=== PATIENT | female | born 1975 | race Caucasian/White ===

== ENCOUNTER 2020-12-26 14:52 | Outpatient (CLI) | payer OTHER, SELFPAY ==
--- NOTE | ~2020-12-26 | MM_ITS ---
EXAMINATION: MM screening scot BI w kimberly HISTORY: Screening TECHNIQUE: Craniocaudal and mediolateral oblique 3-D tomosynthesis images were obtained and synthetic 2-D images were generated. CAD analysis was submitted and interpreted. COMPARISON: Comparison to multiple prior studies sequentially, with oldest reviewed study dated 07/29 the. BREAST PARENCHYMAL COMPOSITION: The breasts are heterogenously dense, which may obscure small masses. FINDINGS: There is a developing asymmetry in the upper aspect of the left breast on MLO view. The rig ht breast is stable without evidence for malignancy. IMPRESSION: 1. Focal asymmetry superior aspect of the left breast on MLO view. 2. Additional mammographic views and possible breast ultrasound are recommended. BI-RADS Category 0: Incomplete: Needs additional imaging evaluation. Reviewed, dictated and finalized at location A. R SPECIALIST IMPRESSION: 1. Focal asymmetry superior aspect of the left breast on MLO view. 2. Additional mammographic views and possible breast ultrasound are recommended . BI-RADS Category 0: Incomplete: Needs additional imaging evaluation.
== END 2020-12-26 14:53 | disposition home or self-care (01) ==
DX: Z12.31 Encounter for screening mammogram for malignant neoplasm of breast (principal); R92.8 Other abnormal and inconclusive findings on diagnostic imaging of breast
CPT/HCPCS: 77063; 77067

== ENCOUNTER 2021-01-11 14:15 | Outpatient (CLI) | payer OTHER, SELFPAY ==
--- NOTE | ~2021-01-11 | MMUS_ITS ---
EXAMINATION: MM diagnostic mammo unilat LT, US breast LT complete HISTORY: Focal mammographic asymmetry reported in superior aspect of left breast on screening MLO vie w of 12/26/2020 TECHNIQUE: Additional 3-D tomosynthesis images of the left breast were performed and synthetic 2-D im ages were generated. CAD analysis was submitted and interpreted. High resolution complete left breast ultrasound was performed. COMPARISON: 12/26/2020 bilateral digital screening mammogram 12/09/2019 bilateral diagnostic digital mammogram and bilateral Limited ultrasound 10/25/2019 bilateral digital screening mammogram 09/21/2018, 07/29/2017 bilateral digital screening mammogram examinations BREAST PARENCHYMAL COMPOSITION: The breasts are heterogeneously dense, which may obscure small masses . FINDINGS: MAMMOGRAPHIC FINDINGS: No suspicious mass or architectural distortion or significant change or significant new or developing density since 02/26/2017 is detected. ULTRASOUND: At 2:00 there is a parallel circumscribed sonolucency measuring 4.9 x 1.8 x 5.2 mm, with through alex smission, compatible with small cyst. No suspicious mass or shadowing of the left breast. IMPRESSION: 1. No mammographic evidence of malignancy 2. Routine annual mammographic screening is recommended. BI-RADS Category 2: Benign finding(s). Reviewed, dictated and finalized at location A. AL STUNNER IMPRESSION: 1. No mammographic evidence of malignancy 2. Routine annual mammographic screening is recommended. BI-RADS Category 2: Benign finding(s).
== END 2021-01-11 14:16 | disposition home or self-care (01) ==
LOC: ANHIMG 14:17
DX: Z85.3 Personal history of malignant neoplasm of breast (principal); R92.8 Other abnormal and inconclusive findings on diagnostic imaging of breast
CPT/HCPCS: 76641; 77065

== ENCOUNTER 2021-03-16 11:09 | Emergency (ER) | payer OTHER, SELFPAY ==
--- NOTE | 2021-03-16 11:14 | ED.GENADULT ---
HPI - General Adult General Chief complaint: Upper Respiratory Infection Stated complaint: ears clogged/cough/sinus issues Time Seen by Provider: 03/16/21 11:14 Source: patient Mode of arrival: ambulatory Limitations: no limitations History of Present Illness HPI narrative: 45-year-old female patient presents to the [facility] with complaints of cold symptoms for the past 3 weeks. Patient states she has had a lot of sinus pressure, feeling like her ears are clogged, runny nose, stuffy nose and a chronic cough that is worse at night. Patient states she has been trying to do Zyrtec daily, Benadryl at night as well as sinus washes. Patient states she does have a history of chronic allergies and has had sinus surgery before in the past. Patient is an active smoker. Patient denies any chest pain or shortness of breath at this time. Patient denies coughing up any sputum. Denies fevers, body aches or chills. Related Data Home Medications Medication Instructions Recorded Confirmed atorvastatin 10 mg PO DAILY 11/30/19 11/30/19 cetirizine 10 mg PO DAILY 11/30/19 11/30/19 lisinopril 20 mg PO DAILY 11/30/19 11/30/19 Allergies Allergy/AdvReac Type Severity Reaction Status Date / Time morphine Allergy Unknown RASH Unverified 11/30/19 16:40 Review of Systems Review of Systems: Narrative: CONSTITUTIONAL: Denies fever, chills, or sweats. EYES: Denies visual changes, redness, or discharge. ENT: Positive rhinorrhea, congestion, denies sore throat, positive bilateral otalgia. CARDIOVASCULAR: Denies chest pain, palpitations, or edema. RESPIRATORY: Positive dry, nonproductive cough, denies dyspnea. GASTROINTESTINAL: Denies abdominal pain, nausea, vomiting, or diarrhea. GENITOURINARY: Denies dysuria or hematuria. SKIN: Denies rash or itching. MUSCULOSKELETAL: Denies back pain, joint pain, or myalgia. NEUROLOGIC: Denies headache, numbness, or weakness. PSYCHIATRIC: Denies anxiety or depression. 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 There is no relevant family history pertinent to the presenting complaint. Exam Narrative: Exam Narrative: GENERAL: Well-appearing, well-nourished, and in no acute distress. HEAD: Normocephalic, atraumatic. Slight tenderness noted to maxillary sinuses on palpation EYES: PERRLA and EOMI. ENT: Nares with erythema and edema noted bilaterally, no rhinorrhea or epistaxis. Mucous membranes moist. Posterior pharynx with no erythema, tonsillar joint, exudates or lesions present. There is a fluid noted behind bilateral ears. No foreign bodies noted to the canal. NECK: Supple. No lymphadenopathy CHEST: Clear to auscultation. No respiratory distress. Patient able talk in clear complete sentences. No tripoding noted. HEART: Regular rate and rhythm. No murmur heard. Normal peripheral pulses. ABDOMEN: Soft, nontender, nondistended, normal active bowel sounds. EXTREMITIES: Normal range of motion. No edema. SKIN: Warm, dry, no rash. NEURO: No focal deficits. Alert and oriented x3. Course Vital Signs Vital signs: Vital Signs Temperature 36.8 C 03/16/21 11:20 Pulse Rate 111 H 03/16/21 11:20 Respiratory Rate 12 03/16/21 11:20 Blood Pressure 118/74 03/16/21 11:20 Pulse Oximetry 99 03/16/21 11:20 Temperature 36.8 C 03/16/21 11:20 Pulse Rate 111 H 03/16/21 11:20 Respiratory Rate 12 03/16/21 11:20 Blood Pressure 118/74 03/16/21 11:20 Pulse Oximetry 99 03/16/21 11:20 V
[2021-03-16 11:20] VITALS: BP 118/74; PULSE 111; RESP 12; TEMP 36.8; O2SAT 99
== END 2021-03-16 11:39 | disposition home or self-care (01) ==
PROVIDERS: Emergency Provider Nurse Practitioner Family
DX: J32.2 Chronic ethmoidal sinusitis (principal); N80.9 Endometriosis, unspecified; K21.9 Gastro-esophageal reflux disease without esophagitis; E78.00 Pure hypercholesterolemia, unspecified; I10 Essential (primary) hypertension
CPT/HCPCS: 99213; G0463

== ENCOUNTER 2021-04-11 07:06 | Emergency (ER) | payer OTHER, SELFPAY ==
--- NOTE | ~2021-04-11 | XR_ITS ---
EXAMINATION: XR chest 2V DATE: 04/11/2021 07:49 INDICATION: Cough TECHNIQUE: PA and lateral views of the chest were obtained. COMPARISON: Chest radiograph dated 11/30/2019 FINDINGS: Bronchial wall thickening and mild opacities in the perihilar left upper lobe consistent with pneumon ia. Small calcified nodules in the left lower lung zone consistent with old granulomatous disease. No pleural effusion or pneumothorax. Cardiomediastinal silhouette is normal. Visualized bones and soft tissues are unremarkable. IMPRESSION: 1. Left upper lobe pneumonia. Reviewed, dictated and finalized at location A.
[2021-04-11 07:12] VITALS: BP 110/81; PULSE 108; RESP 20; TEMP 37; O2SAT 97
[2021-04-11 07:16] VITALS: BP 110/81; PULSE 107; RESP 16; TEMP 37; O2SAT 96
--- NOTE | 2021-04-11 07:26 | ED.BACK ---
HPI - Back Pain/Injury General Chief Complaint: Back Pain/Injury Stated Complaint: back pain Time Seen by Provider: 04/11/21 07:10 History of Present Illness HPI Narrative: 45 yo female presents to the ED for back pain. She has had right upper back pain for the past few days. Last night she was coughing and felt a pop just medial to the right scapula and the pain has been severe since that time. It is worse with moving, deep breathing and coughing. She reports that she has had a cough for more than 1 month. was initially seen at urgent care and treated for sinusitis. SHe has since followed up with her PCP. No SOB, chest pain, leg swelling. Related Data Home Medications Medication Instructions Recorded Confirmed atorvastatin 10 mg PO DAILY 11/30/19 11/30/19 cetirizine 10 mg PO DAILY 11/30/19 11/30/19 lisinopril 20 mg PO DAILY 11/30/19 11/30/19 Allergies Allergy/AdvReac Type Severity Reaction Status Date / Time morphine Allergy Unknown RASH Verified 04/11/21 07:18 Review of Systems Review of Systems: All systems reviewed & are unremarkable except as noted in HPI and below Constitutional: Constitutional: Denies chills, Denies fever(s) and Denies weakness Eyes: Eyes: Reports no additional eye complaints ENT: Reports nasal congestion and Reports sore throat Cardiovascular: Cardiovascular: Denies chest pain Respiratory: Respiratory: Denies chest congestion, Reports cough and Denies dyspnea Gastrointestinal: Gastrointestinal: Denies abdominal pain and Denies nausea Genitourinary: Genitourinary: Reports no additional female genitourinary complaints Musculoskeletal: Musculoskeletal: Reports back pain Neurologic: Reports system reviewed and no additional complaints, except as documented [facility] Past Medical History Medical History Anxiety Endometriosis Female reproductive system disorder Fallopian tube surgery x2 with ablation GERD (gastroesophageal reflux disease) Hypercholesterolemia Hypertension Musculoskeletal disorder 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 Mild bruising to the overlying area. Skin: General skin exam: normal color Neuro: General: patient oriented x3, moves all extremities, no focal motor deficits and CN's II-XI intact bilaterally Speech: normal speech Gait exam (Neuro): Normal gait present Extrem: General: no edema Other: no calf tenderness Psych: Appearance: well kempt Affect: normal affect Course Vital Signs Vital signs: Vital Signs Temperature 37.0 C 04/11/21 07:12 Pulse Rate 108 H 04/11/21 07:12 Respiratory Rate 20 04/11/21 07:12 Blood Pressure 110/81 04/11/21 07:12 Pulse Oximetry 97 04/11/21 07:12 Temperature 37.0 C 04/11/21 07:16 Pulse Rate 94 04/11/21 08:45 Respiratory Rate 16 04/11/21 08:45 Blood Pressure 109/83 04/11/21 08:45 Pulse Oximetry 98 04/11/21 08:45 Procedures Other Procedure Procedure 1: Other Procedure: Trigger point injection Trigger point injection performed in right rhomboid The area was sterilized using chlorhexidine The skin was then anesthetized with 1 ml 1% lidocaine The muscle was then injected with a solution of 1ml Kenalog 40 and 4 ml 1% lidocaine Procedure tolerated well MDM - Back Pain/Injury MDM
[2021-04-11] MEDS: CYCLOBENZAPRINE HCL 10 MG TABLET PO (07:35)
[2021-04-11 08:00] VITALS: BP 110/66; PULSE 100; RESP 16; O2SAT 100
[2021-04-11 08:45] VITALS: BP 109/83; PULSE 94; RESP 16; O2SAT 98
== END 2021-04-11 08:45 | disposition home or self-care (01) ==
PROVIDERS: Emergency Provider Emergency Medicine
DX: M54.6 Pain in thoracic spine (principal); J18.9 Pneumonia, unspecified organism; K21.9 Gastro-esophageal reflux disease without esophagitis; E78.00 Pure hypercholesterolemia, unspecified; I10 Essential (primary) hypertension; N80.9 Endometriosis, unspecified; F41.9 Anxiety disorder, unspecified
CPT/HCPCS: 20552; 71046; 99283; A9270

== ENCOUNTER 2021-04-28 10:32 | Emergency (ER) | payer OTHER, SELFPAY ==
--- NOTE | ~2021-04-28 | XR_ITS ---
EXAMINATION: XR chest 2V DATE: 04/28/2021 11:34 INDICATION: Cough. Chest pain. TECHNIQUE: Frontal and lateral views of the chest were obtained. COMPARISON: Chest 2 views 04/11/2021, 11/30/2019 FINDINGS: There are airspace and interstitial opacities in left upper lobe. No pleural effusion or pn eumothorax. The heart size is normal. IMPRESSION: 1. Airspace and interstitial opacities in left lung upper lobe, mildly worsened from 04/11/2021, likel y pneumonia. Follow-up radiographs are recommended to confirm resolution. Reviewed, dictated and finalized at location A. IMPRESSION: 1. Airspace and interstitial opacities in left lung upper lobe, mildly worsened from 04/11/2021, likely pneumonia. Follow-up radiographs are recommended to con firm resolution.
[2021-04-28 10:50] VITALS: BP 100/56; PULSE 114; RESP 18; TEMP 36.4; O2SAT 98
--- NOTE | 2021-04-28 12:13 | ED.URI ---
HPI - URI/Sore Throat General Chief Complaint: Upper Respiratory Infection Stated Complaint: pneumonia Time Seen by Provider: 04/28/21 11:27 Source: patient Mode of arrival: ambulatory Limitations: no limitations History of Present Illness HPI Narrative: This is a 45-year-old female that presents the emergency department for ongoing cough over the last couple of months. Reports she has been treated with Augmentin last month for this. And most recently with Levaquin about 2 weeks ago. Reports she continues to have a cough. Sometimes it is productive of sputum. Denies fever, chest pain, shortness of breath, exogenous estrogen use, recent surgery, or lower extremity edema. Related Data Home Medications Medication Instructions Recorded Confirmed atorvastatin 10 mg PO DAILY 11/30/19 11/30/19 cetirizine 10 mg PO DAILY 11/30/19 11/30/19 lisinopril 20 mg PO DAILY 11/30/19 11/30/19 Allergies Allergy/AdvReac Type Severity Reaction Status Date / Time morphine Allergy Unknown RASH Verified 04/11/21 07:18 Review of Systems Review of Systems: Narrative: CONSTITUTIONAL: Denies fever ENT: Reports congestion CARDIOVASCULAR: Denies chest pain, or edema. RESPIRATORY: Reports cough. Denies dyspnea. 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 HEAD: Normocephalic, atraumatic. EYES: EOMI. ENT: Nares clear, no rhinorrhea or epistaxis. Mucous membranes moist. Oropharynx without tonsillar hypertrophy exudate or other lesions. Bilateral TMs pearly arellano non-bulging NECK: Supple. No adenopathy or masses. CHEST: Clear to auscultation. No respiratory distress. No wheezes rales or rhonchi HEART: Regular rate and rhythm. No murmur heard. Normal peripheral pulses. EXTREMITIES: Normal range of motion. No edema. SKIN: Warm, dry, no rash. NEURO: No focal deficits. Alert and oriented x3. PSYCH: Normal mood and affect Course Vital Signs Vital signs: Vital Signs Temperature 97.5 F L 04/28/21 10:50 Pulse Rate 114 H 04/28/21 10:50 Respiratory Rate 18 04/28/21 10:50 Blood Pressure 100/56 L 04/28/21 10:50 Pulse Oximetry 98 04/28/21 10:50 Temperature 97.5 F L 04/28/21 10:50 Pulse Rate 114 H 04/28/21 10:50 Respiratory Rate 18 04/28/21 10:50 Blood Pressure 100/56 L 04/28/21 10:50 Pulse Oximetry 98 04/28/21 10:50 MDM - URI/Sore Throat MDM Narrative Medical decision making narrative: Patient presents the emergency department for ongoing cough over the last couple of months. She is afebrile and nontoxic-appearing. Oxygen saturation is normal on room air. Her vitals are stable. CBC is without leukocytosis. Metabolic panel without concerning findings. Chest x-ray does show continued pneumonia, a little bit worsened from her last image 2 weeks ago. Will trial commendation antibiotic therapy with Augmentin and azithromycin. She was instructed to follow-up with a exchange specialist for continued symptoms. She was given warnings to return to the ER Lab Data Attestation: I reviewed the patient's lab results. Result diagrams: 04/28/21 12:05 04/28/21 12:05 Labs: Lab Results 04/28/21 04/28/21 Range/Units 12:05 12:05 WBC 9.0 (4.5-10.0) K/mm3 RBC 4.58 (4.2-5.4) M/mm3 Hg
[2021-04-28 12:16] LABS: Basophils Absolute Auto 0.1 K/mm3 (0.0-0.1); Basophils Percent Auto 0.6 % (0.2-1.2); Eosinophils Absolute Auto 0.1 K/mm3 (0-0.3); Eosinophils Percent Auto 1.6 % (0-4.4); Hematocrit 40.2 % (37.0-47.0); Hemoglobin 13.9 g/dL (12.0-15.0); Immature Granulocyte Absolute 0.05 K/mm3 (0.00-0.031); Immature Granulocyte Percent A 0.6 % (0-0.5); Lymphocytes Absolute Auto 1.81 K/mm3 (0.9-3.2); Mean Corpuscular HGB Conc 34.6 g/dl (32-36); Mean Corpuscular Hemoglobin 30.3 pg (26-34); Mean Corpuscular Volume 87.8 fl (80-100); Mean Platelet Volume 9.6 fl (7.4-10.4); Monocytes Percent Auto 10.7 % (2.6-8.5); Neutrophils Percent Auto 66.5 % (45.5-73.1); Platelet Count Result 286 k/mm3 (150-375); Red Blood Count 4.58 M/mm3 (4.2-5.4)
[2021-04-28 12:31] LABS: Anion Gap 6 mmol/L (8-16); Blood Urea Nitrogen 11 mg/dL (7-17); Calcium 9.5 mg/dL (8.4-10.2); Carbon Dioxide 25 mmol/L (22-30); Chloride 102 mmol/L (98-107); Estimated CRCL calculation 88 ml/min; Estimated Glomerular Filt Rate > 60; Glucose 88 mg/dL (65-105); Potassium 4.3 mmol/L (3.4-5.0); Sodium 133 mmol/L (137-145)
[2021-04-28 14:39] VITALS: O2SAT 98
[2021-04-28 14:40] VITALS: BP 126/84; PULSE 98; RESP 17; O2SAT 98
== END 2021-04-28 14:41 | disposition home or self-care (01) ==
PROVIDERS: Physician Assistant; Emergency Provider Emergency Medicine
DX: J18.9 Pneumonia, unspecified organism (principal); F41.9 Anxiety disorder, unspecified; N80.9 Endometriosis, unspecified; K21.9 Gastro-esophageal reflux disease without esophagitis; E78.00 Pure hypercholesterolemia, unspecified; I10 Essential (primary) hypertension
CPT/HCPCS: 36415; 71046; 80048; 85025; 99283

== ENCOUNTER 2021-04-29 22:41 | Emergency (ER) | payer OTHER, SELFPAY ==
[2021-04-29 22:44] VITALS: BP 142/83; PULSE 81; RESP 18; TEMP 35.9; O2SAT 100
--- NOTE | 2021-04-30 00:46 | PC.NURSE ---
seen getting into private vehicle in parking lot by this RN.
== END 2021-04-30 05:24 | disposition left against medical advice (07) ==
LOC: ANHED 04-30 00:53
DX: R03.0 Elevated blood-pressure reading, without diagnosis of hypertension (principal)
CPT/HCPCS: 99199

== ENCOUNTER 2021-05-16 08:46 | Emergency (ER) | payer OTHER, SELFPAY ==
--- NOTE | ~2021-05-16 | XR_ITS ---
EXAMINATION: XR ankle LT min 3V EXAM DATE: 05/16/2021 09:22 INDICATION: Left medial ankle pain from massage yesterday. TECHNIQUE: Left ankle frontal, lateral and oblique projections obtained and reviewed. There is no pr ior study for comparison. FINDINGS: The left ankle mortise appears intact. There are no acute fractures or dislocations ident ified. There is no subcutaneous gas. The soft tissue is unremarkable. There are no radiopaque for eign bodies. IMPRESSION: 1. Unremarkable left ankle exam. Reviewed, dictated and finalized at location B.
[2021-05-16 08:53] VITALS: BP 135/84; PULSE 105; RESP 16; TEMP 35.9; O2SAT 99
--- NOTE | 2021-05-16 09:34 | ED.EXTPRO ---
HPI - Extremity Problem General Chief complaint: Extremity Problem,Nontraumatic Stated complaint: Left ankle pain Time Seen by Provider: 05/16/21 09:10 Source: patient Mode of arrival: ambulatory History of Present Illness HPI Narrative: Cherie Vela is a 46 yo female with a PMH of HTN came to [facility] with complaints of left ankle pain post pedicure appointment yesterday. She states that they rubbed her ankle hard and she developed a medial bruise to her ankle she also says she has some lateral pain particularly with walking and in the morning. She iced it she is taking Robaxin she still has pain she is planning to leave on vacation in 2 days wants to make sure that her ankle is okay for travel She has an old basketball injury/ligament injury on the left ankle. Patient used ice on foot last night. Has numbness and some pain on the lateral side of foot even though denies walking more on that side Related Data Home Medications Medication Instructions Recorded Confirmed atorvastatin 10 mg PO DAILY 11/30/19 05/16/21 cetirizine 10 mg PO DAILY 11/30/19 05/16/21 lisinopril 20 mg PO DAILY 11/30/19 05/16/21 escitalopram oxalate 10 mg PO DAILY 05/16/21 05/16/21 methocarbamol 500 mg PO DAILY 05/16/21 05/16/21 Allergies Allergy/AdvReac Type Severity Reaction Status Date / Time morphine Allergy Unknown RASH Verified 04/29/21 22:47 Review of Systems Review of Systems: Narrative: CONSTITUTIONAL: Denies fever, chills, sweats. EYES: Denies visual changes, redness, discharge. ENT: Denies rhinorrhea, congestion, sore throat, otalgia. CARDIOVASCULAR: Denies chest pain, palpitations, edema. RESPIRATORY: Denies dyspnea, wheezing, cough GASTROINTESTINAL: Denies abdominal pain, nausea, vomiting, diarrhea. GENITOURINARY: Denies dysuria, hematuria, abnormal discharge SKIN: Denies rash or itching. NEUROLOGIC: Denies numbness, or focal weakness. PSYCHIATRIC: Denies anxiety or depression. 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 There is no relevant family history pertinent to the presenting complaint. Exam Narrative: Exam Narrative: GENERAL: This is a well-nourished, well-developed patient, in mild distress. HEAD: normocephalic, atraumatic. EYES: Sclera clear/white. Vision is grossly intact. EARS: External ears normal,. Hearing grossly intact. NOSE: External nose normal without nasal discharge, nares without redness, no rhinorrhea. THROAT: Mucous membranes moist, NECK: Neck supple, CARDIOVASCULAR: Tachycardic rate and rhythm without murmurs, gallops, or rubs. RESPIRATORY: Clear to auscultation. Breath sounds equal bilaterally. No wheezes, rales, or rhonchi. GASTROINTESTINAL: Abdomen soft, SKIN: warm, intact with no suspicious lesions or rash, good texture and turgor. NEURO: awake, alert, and oriented to person, place and time. There were no obvious focal neurologic abnormalities. Steady gait EXTREMITIES: Normal range of motion, right. Pain on walking with left ankle, able to flex and extend has bruise on medial side of ankle states there is some pain on the lateral side BACK: Nontender without deformity Course Course Emergency Course: Patient came her left ankle pain with a bruise from a
== END 2021-05-16 09:46 | disposition home or self-care (01) ==
PROVIDERS: Emergency Provider Nurse Practitioner
DX: M25.572 Pain in left ankle and joints of left foot (principal); Z87.891 Personal history of nicotine dependence; N80.9 Endometriosis, unspecified; K21.9 Gastro-esophageal reflux disease without esophagitis; E78.00 Pure hypercholesterolemia, unspecified; I10 Essential (primary) hypertension; F41.9 Anxiety disorder, unspecified
CPT/HCPCS: 73610; 99213; G0463

== ENCOUNTER 2021-05-30 15:08 | Outpatient (CLI) | payer OTHER, SELFPAY ==
[2021-06-02 09:30] LABS: Alpha-1-Antitrypsin, QN 182 mg/dL (83-199)
== END 2021-05-30 15:09 | disposition home or self-care (01) ==
LOC: ANHLAB 15:10
PROVIDERS: PCP Internal Medicine Critical Care Medicine; Visit Provider Internal Medicine Critical Care Medicine
DX: Z87.01 Personal history of pneumonia (recurrent) (principal); Z87.891 Personal history of nicotine dependence
CPT/HCPCS: 36415; 82103; 82104

== ENCOUNTER 2021-06-07 09:37 | Outpatient (CLI) | payer OTHER, SELFPAY ==
--- NOTE | ~2021-06-07 | CT_ITS ---
EXAMINATION: CT sinus wo con EXAM DATE: 06/07/2021 14:41 INDICATION: Z87.01 - Personal history of pneumonia (recurrent). TECHNIQUE: Spiral CT of the sinuses was acquired in the axial plane. Coronal and sagittal reformatte d images were also reviewed. The dose-length product (DLP) for this examination was 286.97 mGy-cm. Iterative reconstruction (ASIR) was used as dose reduction technique. There is no prior study for co mparison. FINDINGS: Bilateral maxillary sinus window procedures and partial ethmoidectomies. Minimal bilatera l ethmoid mucoperiosteal thickening. Otherwise sinuses are well aerated. The ostiomeatal units are p atent. There is no sinus wall thickening. Small left-sided maria luisa bullosa. There is mild rightwa rd nasal septal deviation. The mastoid air cells and middle ears are well aerated. External audito ry canals are patent. The orbits and visualized soft tissues are unremarkable. IMPRESSION: 1. Minimal ethmoid mucoperiosteal thickening. 2. Surgical changes. Reviewed, dictated and finalized at location B.
--- NOTE | ~2021-06-07 | CT_ITS ---
EXAMINATION:CT chest high resolution wo ks DATE: 06/07/2021 14:40 INDICATION: Pneumonia. Chronic cough. TECHNIQUE: Computed tomography (CT) of the chest was performed without intravenous contrast. Automate d exposure control and iterative reconstruction technique were employed. The dose-length product (DLP ) was 126.87 mGy-cm. COMPARISON: Chest 2 views 04/28/2021, 11/30/2019 FINDINGS: Left lung demonstrate widespread groundglass opacities and septal thickening (crazy paving) with relative sparing of the periphery and bases of the lungs. There is a 2.2 cm nodule in left lowe r lobe abutting the pleura. There is a 7 mm nodule in left upper lobe. There are subsegmental groundg lass opacities with septal thickening in superior segment right lower lobe. No pleural effusion. The heart size is normal. There are coronary artery calcifications. There is a small pericardial effusion . The bones are unremarkable. IMPRESSION: 1. Disease in left lung and superior segment right lower lobe. The differential diagnosis includes at ypical pneumonia (such as COVID-19 pneumonia or Pneumocystis pneumonia), asymmetric pulmonary edema, alveolar proteinosis, and metastatic disease with lymphangitic spread of tumor. 2. Small pericardial effusion. Reviewed, dictated and finalized at location A. IMPRESSION: 1. Disease in left lung and superior segment right lower lobe. The differential diagnosis includes atypical pneumonia (such as COVID-19 pneumonia or Pneumocys tis pneumonia), asymmetric pulmonary edema, alveolar proteinosis, and metastati c disease with lymphangitic spread of tumor. 2. Small pericardial effusion.
--- NOTE | 2021-06-07 09:43 | ECHO_ITS ---
Patient Info Name: Cherie Vela Age: 46 years : 1975 Gender: Female Ht: 61 in Wt: 115 lbs BSA: 1.50 m2 HR: 69 bpm BP: 111 / 80 mmHg Technical Quality: Good Exam Date: 06/07/2021 10:11 AM Exam Location: [facility] Patient Status: Outpatient Admit Date: 06/07/2021 Staff Ordering Physician: Miranda Larson MD Email Operations Manager: Vikram Perez RDCS, RT Attending Provider: Miranda Larson MD Referring Physician: Marsha LILLY; Exam Type: CA echo doppler color flow Study Info Indications R05 - Cough Complete two-dimensional, color flow and Doppler transthoracic echocardiogram is performed. Strain analysis performed. Summary 1. Complete two-dimensional, color flow and Doppler transthoracic echocardiogram is performed. 2. Left ventricular chamber dimension is normal. 3. Left ventricular systolic function is normal, estimated at 60-65%. 4. The left ventricular diastolic function is grade I diastolic dysfunction. 5. E/e' 12 is mildly elevated. 6. Global longitudinal strain is normal at -18.2%. 7. There is mild aortic valve sclerosis. 8. There is mild tricuspid valve regurgitation. 9. No pulmonary hypertension, estimated pulmonary arterial systolic pressure is 23 mmHg. 10. There is trace pulmonic regurgitation. 11. There is small circumferential pericardial effusion. No pericardial tamponade. Left Ventricle E/e' 12 is mildly elevated. Global longitudinal strain is normal at -18.2%. Left ventricular chamber dimension is normal. Left ventricular systolic function is normal, estimated at 60-65%. The left ventricular diastolic function is grade I diastolic dysfunction. Right Ventricle Right ventricular systolic function is normal and with normal TAPSE 2.2 cm. Right ventricular chamber dimension is normal. Left Atria Left atrial chamber dimension is normal. Right Atria Right atrial chamber dimension is normal. Aortic Valve The aortic valve is trileaflet. There is mild aortic valve sclerosis. There is no aortic valve stenosis. There is no aortic valve regurgitation. Pulmonic Valve There is trace pulmonic regurgitation. Mitral Valve There is no mitral valve stenosis. There is no mitral valve regurgitation. Tricuspid Valve There is mild tricuspid valve regurgitation. No pulmonary hypertension, estimated pulmonary arterial systolic pressure is 23 mmHg. Pericardium/Pleural There is small circumferential pericardial effusion. No pericardial tamponade. Inferior Vena Cava Normal inferior vena cava with >50% collapse upon inspiration consistent with normal right atrial pressure, 5 mmHg. Aorta The aortic root size at the sinus of Valsalva is normal. Left Ventricular Outflow Tract Name Value Normal LVOT 2D LVOT Diameter 2.0 cm LVOT Doppler LVOT Peak Gradient 4 mmHg LVOT Mean Gradient 2 mmHg LVOT VTI 19 cm LVOT VTI/AV VTI Ratio 0.8 LVOT Stroke Volume 58 ml LVOT CO 3.9 l/min
== END 2021-06-07 09:38 | disposition home or self-care (01) ==
PROVIDERS: PCP Internal Medicine Critical Care Medicine; Visit Provider Internal Medicine Critical Care Medicine
DX: R05 Cough (principal); J18.9 Pneumonia, unspecified organism; Z98.890 Other specified postprocedural states; R91.8 Other nonspecific abnormal finding of lung field; I31.3 Pericardial effusion (noninflammatory); I08.2 Rheumatic disorders of both aortic and tricuspid valves
CPT/HCPCS: 70486; 71250; 93306

== ENCOUNTER 2021-06-16 10:55 | Emergency (ER) | payer OTHER, SELFPAY ==
[2021-06-16] VITALS (26 sets, daily range): BP systolic 110–141; BP diastolic 71–86; PULSE 65–98; RESP 15–23; TEMP 36.8; O2SAT 94–99
--- NOTE | ~2021-06-16 | XR_ITS ---
EXAMINATION: XR chest 2V DATE: 06/16/2021 12:53 INDICATION: Shortness of breath and cough TECHNIQUE: PA and lateral views of the chest are obtained. COMPARISON: 04/28/[address] dated 06/17/2021 FINDINGS: There are persistent and worsened interstitial and airspace opacities throughout the left l vickie. There is no pleural effusion or pneumothorax. The cardiomediastinal silhouette is normal. The vi sualized bones and soft tissues are unremarkable. IMPRESSION: 1. Diffuse interstitial and airspace opacities of the left lung with interval worsening. Differential is as previously described on the recent CT including atypical pneumonia, asymmetric pulmonary edema , alveolar proteinosis, or metastatic disease with lymphangitic spread of tumor. Reviewed, dictated and finalized at location A. IMPRESSION: 1. Diffuse interstitial and airspace opacities of the left lung with interval w orsening. Differential is as previously described on the recent CT including at ypical pneumonia, asymmetric pulmonary edema, alveolar proteinosis, or metastat ic disease with lymphangitic spread of tumor.
--- NOTE | ~2021-06-16 | XR_ITS ---
EXAMINATION: XR thoracic spine 3V DATE: 06/16/2021 12:53 INDICATION: Back pain TECHNIQUE: AP, lateral and lateral swimmer's views of the thoracic spine were obtained. COMPARISON: None. FINDINGS: Bone alignment is normal. There is no fracture. The vertebral body heights and intervertebr al disc spaces are maintained. There are partially imaged interstitial and airspace opacities of the left lung, described on chest radiograph. IMPRESSION: 1. No acute osseous abnormality. Reviewed, dictated and finalized at location A.
--- NOTE | ~2021-06-16 | CT_ITS ---
EXAMINATION: CTA chest PE protocol DATE: 06/16/2021 16:02 INDICATION: Shortness of breath TECHNIQUE: Computed tomography (CT) pulmonary angiogram of the chest was performed with 100 mL Omnipa que-350 intravenous contrast. Additional 3D reconstructions utilizing coronal maximum intensity proje ction (MIP) were performed. Automated exposure control and iterative reconstruction technique were em ployed. The dose-length product was 136.23 mGy-cm. COMPARISON: None FINDINGS: Excellent contrast opacification of the pulmonary arteries. There is mild streak artifact from dense contrast in the superior vena cava and right atrium. Minimal scattered respiratory motion artifact wh ich does not significantly limit evaluation. No pulmonary embolism. Again seen is a diffuse crazy pav ing pattern throughout the left lung relatively sparing the apices and lung bases characterized by gr oundglass opacities with septal thickening. There has been increase in the density of the groundglass opacity. No significant change in a significantly smaller region of similar crazy paving pattern in the superior segment of the right lower lobe. Interval increase in size of a more nodular pleural-bas ed soft tissue density at the posterior medial aspect of the basilar left lower lobe which previously measured 2.3 x 1.7 cm and currently measures 2.8 x 2.3 cm responding dimensions. Unchanged small clu ster of smaller nodules at the anterior apical segment of the left upper lobe, the largest measuring up to 7 mm. No pleural effusion or pneumothorax. Heart size is normal. Atherosclerotic coronary arter y calcification. Unchanged small pericardial effusion. No pathologically enlarged thoracic lymphadeno shilpi. Bones are unremarkable. IMPRESSION: 1. No pulmonary embolus. 2. Diffuse lung disease with crazy paving pattern throughout the left lung and in the superior segmen t of the right lower lobe with increase in the degree of the groundglass component throughout the lef t lung. Differential as previously detailed includes atypical pneumonia, asymmetric pulmonary edema, metastatic disease with lymphangitic spread of tumor and pulmonary alveolar proteinosis. Given the re latively short interval progression would favor pneumonia. 3. Unchanged small pericardial effusion. Reviewed, dictated and finalized at location A. IMPRESSION: 1. No pulmonary embolus. 2. Diffuse lung disease with crazy paving pattern throughout the left lung and in the superior segment of the right lower lobe with increase in the degree of the groundglass component throughout the left lung. Differential as previously detailed includes atypical pneumonia, asymmetric pulmonary edema, metastatic di sease with lymphangitic spread of tumor and pulmonary alveolar proteinosis. Giv en the relatively short interval progression would favor pneumonia. 3. Unchanged small pericardial effusion.
--- NOTE | 2021-06-16 12:39 | ECG_ITS ---
Measurements Intervals [place] Rate: 68 P: 67 [place]: 155 QRS: 74 QRSD: 76 T: 62 QT: 386 QTc: 412 Interpretive Statements SINUS RHYTHM BASELINE ARTIFACT- II, III, AVR, AVF, V2-V6 NORMAL ECG Electronically Signed On 06-16-2021 18:00:41 CDT by Daron Huertas D.O.
--- NOTE | 2021-06-16 12:42 | ED.GENADULT ---
HPI - General Adult General Chief complaint: Back Pain/Injury Stated complaint: BACK PAIN, RECENT PNEUMONIA Time Seen by Provider: 06/16/21 12:07 Source: patient History of Present Illness HPI narrative: Patient is a 46 y/o female complaining of bilateral upper back and right jaw pain starting about 1 hour ago. She describes her pain as sharp with no radiation. There is no alleviating or exacerbating factor. She has been having cough and SOB for last 2 months due to persistent pneumonia. She had already received multiple rounds of antibiotics. She has no chest pain. Related Data Home Medications Medication Instructions Recorded Confirmed atorvastatin 10 mg PO DAILY 11/30/19 06/16/21 cetirizine 10 mg PO DAILY 11/30/19 06/16/21 lisinopril 20 mg PO DAILY 11/30/19 05/16/21 Allergies Allergy/AdvReac Type Severity Reaction Status Date / Time morphine Allergy Unknown RASH Verified 06/16/21 11:29 Review of Systems Constitutional: Constitutional: Denies chills, Denies fever(s), Denies headache(s) and Denies weakness Eyes: Eyes: Denies blurry vision ENT: Reports facial pain (right jaw pain), Denies headache(s) and Denies neck pain Cardiovascular: Cardiovascular: Denies chest pain and Reports dyspnea Respiratory: Respiratory: Reports cough and Reports dyspnea Gastrointestinal: Gastrointestinal: Denies abdominal pain, Denies diarrhea, Denies nausea and Denies vomiting Genitourinary: Genitourinary: Denies hematuria and Denies dysuria Musculoskeletal: Musculoskeletal: Reports back pain and Denies neck pain Neurologic: Denies headache(s) and Denies weakness [facility] Past Medical History Medical History Anxiety Endometriosis Female reproductive system disorder Fallopian tube surgery x2 with ablation GERD (gastroesophageal reflux disease) Hypercholesterolemia Hypertension Musculoskeletal disorder 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 Surgical History Surgical History H/O sinus surgery 2009 Social History Social History Social History: 5weeks quit Smoking packs per day: 0.5 Smoking cigarettes per day: 10.0 Years smoked: 25 Smoking pack-years: 12.50 Smoking status: Former smoker Smoking end date: 04/28/21 Alcohol intake: current Gender identity (if verbalized by the patient): Female Exam Const: General: no acute distress and well developed Orientation/consciousness: oriented to person, oriented to place, oriented to time and patient oriented x3 HENMT: Head: normocephalic Ears: external ears normal General nose exam: Normal external nose present Eyes: General: appearance normal, both eyes and all related structures Conjunctivae: conjunctivae normal Neck: Neck: normal visual inspection and full ROM Chest: Chest palpation & inspection: normal inspection of the chest and no tenderness Resp: Effort & Inspection: normal respiratory effort Auscultation: clear to auscultation bilaterally Cardio: Rate: regular rate Rhythm: regular rhythm GI: GI Palp: No abdominal tenderness and Yes Soft to palpation Skin: General skin exam: normal color and turgor normal Neuro: General: oriented to person, oriented to place, oriented to time and patient oriented x3 Cognition (Neuro): normal cognition Extrem: General: normal to inspection, full ROM and no pedal edema Psych: Appearance: grossly normal Mental Status: mental status grossly normal Affect: normal affect Course Reevaluation(s) Reevaluation #1: Rechecked. Patient states that she feels better. She does not have jaw pain or back pain at this time. Offered patient possible admission and pulmonary consult. She declined admission and states that she would rather go home and follow up with Dr. Larson as outpatient. Date: 06/16/21 Time: 18:00 Consultations Consultation #1: Discussed with Dr. Larson,
--- NOTE | 2021-06-16 12:45 | PC.NURSE ---
Patient being taken to radiology by dwight
[2021-06-16 14:34] LABS: Basophils Absolute Auto 0.1 K/mm3 (0.0-0.1); Basophils Percent Auto 0.6 % (0.2-1.2); Eosinophils Absolute Auto 0.4 K/mm3 (0-0.3); Eosinophils Percent Auto 3.7 % (0-4.4); Hematocrit 37.1 % (37.0-47.0); Immature Granulocyte Absolute 0.05 K/mm3 (0.00-0.031); Immature Granulocyte Percent A 0.4 % (0-0.5); Lymphocytes Absolute Auto 1.73 K/mm3 (0.9-3.2); Lymphocytes Percent Auto 15.5 % (18.3-44.2); Mean Corpuscular Hemoglobin 30.4 pg (26-34); Mean Corpuscular Volume 86.7 fl (80-100); Mean Platelet Volume 9.7 fl (7.4-10.4); Monocytes Absolute Auto 0.8 K/mm3 (0.1-0.6); Monocytes Percent Auto 7.5 % (2.6-8.5); Neutrophils Percent Auto 72.3 % (45.5-73.1); Platelet Count Result 287 k/mm3 (150-375); Red Blood Count 4.28 M/mm3 (4.2-5.4); Red Cell Distribution Width 11.9 % (11.5-14.5); White Blood Count 11.1 K/mm3 (4.5-10.0)
[2021-06-16 14:43] LABS: Alanine Aminotransferase 26 U/L (4-35); Albumin Level 3.6 g/dL (3.5-5.1); Alkaline Phosphatase 79 U/L (38-126); Anion Gap 6 mmol/L (8-16); Aspartate Amino Transferase 35 U/L (14-36); Bilirubin,Total 0.4 mg/dL (0.2-1.3); Blood Urea Nitrogen 13 mg/dL (7-17); Carbon Dioxide 25 mmol/L (22-30); Chloride 100 mmol/L (98-107); Estimated CRCL calculation 87 ml/min; Estimated Glomerular Filt Rate > 60; Glucose 90 mg/dL (65-110); Sodium 131 mmol/L (137-145)
[2021-06-16 14:50] LABS: D Dimer 3.76 ug/mL (<0.48)
[2021-06-16 14:56] LABS: Troponin I < 0.012 ng/mL (0.000-0.034)
[2021-06-16 15:49] LABS: NT Pro B Type Natriuretic Pept 84 pg/mL (5-100)
[2021-06-16 16:07] LABS: Troponin I < 0.012 ng/mL (0.000-0.034)
[2021-06-16] MEDS: ACETAMINOPHEN 325 MG TABLET 650 MG PO (16:38)
[2021-06-17 20:34] LABS: SARS-CoV-2 RNA PCR Negative
== END 2021-06-16 18:17 | disposition home or self-care (01) ==
PROVIDERS: Emergency Provider Emergency Medicine; PCP Internal Medicine Critical Care Medicine
DX: R68.84 Jaw pain (principal); J18.9 Pneumonia, unspecified organism; M54.6 Pain in thoracic spine; Z20.822 Contact with and (suspected) exposure to COVID-19; K21.9 Gastro-esophageal reflux disease without esophagitis; E78.00 Pure hypercholesterolemia, unspecified; I10 Essential (primary) hypertension; N80.9 Endometriosis, unspecified; Z87.891 Personal history of nicotine dependence; R06.02 Shortness of breath
CPT/HCPCS: 36415; 71046; 71275; 72072; 80053; 81025; 83880; 84484; 85025; 85380; 93005; 99284; A9270; C9803; Q9967; U0003; U0005

== ENCOUNTER 2021-06-20 01:19 | Day surgery (SDC) | payer OTHER, SELFPAY ==
[2021-06-17 12:09] VITALS: BMI 22.2
[2021-06-20] VITALS (9 sets, daily range): BP systolic 83–125; BP diastolic 52–103; PULSE 82–102; RESP 14–29; TEMP 35.8–36.1; O2SAT 95–100
--- NOTE | ~2021-06-20 | XR_ITS ---
XR chest 1V portable DATE: 06/20/2021 13:57 INDICATION: Left lung infiltrates TECHNIQUE: Portable upright AP chest on 06/20/2021 at 1353 hours COMPARISON: 06/16/2021 CT pulmonary scan 06/16/2021 2 view chest FINDINGS: There is some increasing consolidation of the extensive left lung infiltrates. There is vol ume loss of the left lung with mild leftward shift of the heart mediastinum. The right lung appears largely clear; the area of superior segment right lower lobe infiltrate noted on 06/16/2021 CT pulmonary scan is largely obscured by the right hilar structures on this chest radiog raph. No pleural effusion. No pulmonary vascular congestion. No pneumothorax. Heart size appears within normal range. Diffuse osteopenia. IMPRESSION: Increased left diffuse pulmonary infiltrate Reviewed, dictated and finalized at location A.
--- NOTE | ~2021-06-20 | XR_ITS ---
EXAMINATION: XR fl bronchoscopy w imaging EXAM DATE: 06/20/2021 13:36 INDICATION: Left lower lobe bronchoscopy. TECHNIQUE: Fluoroscopy used during XR fl bronchoscopy w imaging performed by Madi Corley. Radiologist was not present for the imaging or procedure. Total fluoroscopic time of 39 seconds. The DAP for this procedure was 0.112 mGym2. A total of 3 images sent to PACS from the exam. There is no prior study for comparison. FINDINGS: Image demonstrates bronchoscopy scope extending over the mid aspect of the left lower lobe . Correlate with procedure note. IMPRESSION: Fluoroscopy used during XR fl bronchoscopy w imaging. Reviewed, dictated and finalized at location A.
--- NOTE | 2021-06-20 08:24 | SUR.PREOP ---
Dr Urban made aware of patients last sodium level 131- no new orders at this time.
[2021-06-20] MEDS: LACTATED RINGERS 1,000 ML 150 ML IV CONT ×2 (11:23→13:43)
--- NOTE | 2021-06-20 12:14 | WPDANESEPPF ---
Anes - Initial Pre Proc Eval Procedure: Operation Date: 06/20/21 13:00 Proposed Procedures p Flexible Bronchoscopy - Miranda Larson MD Date/Time: 06/20/21 12:14 Surgeon: Miranda Larson MD Pre Op Diagnosis: lung mass Patient Data Age: 46 Gender: F Height: 1.55 m Weight: 51.5 kg Last Vital Signs Temp 36.1 C L 06/20/21 11:10 Pulse 102 H 06/20/21 11:10 Resp 16 06/20/21 11:10 BP 83/55 L 06/20/21 11:10 Pulse Ox 95 06/20/21 11:10 Allergies Allergy/AdvReac Type Severity Reaction Status Date / Time morphine Allergy Intermediate Hives Verified 06/20/21 11:07 Home Medications Medication Instructions Recorded Confirmed Type atorvastatin 10 mg PO DAILY 11/30/19 06/17/21 History cetirizine 10 mg PO DAILY 11/30/19 06/17/21 History lisinopril 20 mg PO DAILY 11/30/19 06/17/21 History Patient hx anesthesia problems: none Family hx anesthesia problems: none PMFSH Past Medical History Medical History Anxiety Endometriosis Female reproductive system disorder Fallopian tube surgery x2 with ablation GERD (gastroesophageal reflux disease) Hypercholesterolemia Hypertension Musculoskeletal disorder 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 Surgical History Surgical History H/O sinus surgery 2009 Social History Social History Social History: 5weeks quit Smoking packs per day: 0.5 Smoking cigarettes per day: 10.0 Years smoked: 25 Smoking pack-years: 12.50 Smoking status: Former smoker Tobacco type: cigarettes Smoking end date: 04/28/21 Alcohol intake: current Substance use: never Substance use type: does not use Living arrangements: with family Gender identity (if verbalized by the patient): Female Spiritual care concerns: No Anes - Eval Final PreProcedure Day of Procedure 06/20/21 12:14 Patient weight: normal Heart: regular rate and rhythm Lungs: decreased breath sounds Airway: Mallampati scale class II Neurological: alert and oriented Last oral intake: >/= 8 hours ASA classification: III Emergent: no Anesthetic plan: proceed Anesthesia type and monitoring: general GIVS and standard monitoring Informed Consent: The patient's anesthetic plan and its attendant risks and benefits were discussed with the patient/family/POA. Questions were solicited and answers provided to the satisfaction of the patient/family/POA.
--- NOTE | 2021-06-20 12:36 | WPDHPUPDATE1 ---
History and Physical Update Update Date/Time: 06/20/21 12:36 History and Physical has been reviewed, including an updated exam of the patient. There are NO changes in the patient's condition. Risks, benefits, and alternatives have been discussed and questions answered. Patient agrees to proceed with procedure. The patient was seen May 30, 2021 as a new consult, and since then has had a high resolution CT June 07 showing diffuse alveolar and interstitial changes on the left lung with minial involvement on the right side. She has had persistent coughing, and went to the ER June 16 with increased markings. PLAN: plan is to do bronchoscopy with BAL, multiple biopsies in the LLL to evaluate for infectious causes - fungal/bacterial/ AFB/viral;, malignancy, other causes of inflammation in the lung parenchyma.
[2021-06-20] MEDS: SODIUM CHLORIDE 0.9% IV 500 ML BAG IRRIGATION (13:51)
[2021-06-20] MEDS: ALBUTEROL SULFATE NEB 2.5 MG/0.5 ML INH INHALATION (14:11)
--- NOTE | 2021-06-20 14:11 | SUR.PHASEII ---
1410 called Respiratory Therapy and made them aware of nebulizer ordered by DR Rodríguez.
--- NOTE | 2021-06-20 14:13 | SUR.PHASEII ---
1355 Portable xray completer at bedside. Pt tolerated well.
--- NOTE | 2021-06-20 14:22 | SUR.PHASEII ---
1415 RT at [facility] for nebulizer.
[2021-06-20 16:55] LABS: Source Bronchial Fluid Bronchial Washings
[2021-06-20 16:56] LABS: Appearance Bronchial Fluid Hazy; Color Bronchial Fluid Colorless; Eosinophils Bronchial Fluid 0 %; Lymphocytes Bronchial Fluid 9 %; Monocytes Bronchial Fluid 5 %; Neutrophils Bronchial Fluid 2 %
[2021-06-20 16:57] LABS: Macrophages Bronchial Fluid 82; Other Cells Bronchial Fluid 2 %
== END 2021-06-20 14:55 | disposition home or self-care (01) ==
PROVIDERS: Visit Provider Internal Medicine Critical Care Medicine
PROC: 0BJ08ZZ Inspection of Tracheobronchial Tree, Via Natural or Artificial Opening Endoscopic (ICD-10-PCS; CPT 31622; principal; 2021-06-20 13:00)
DX: C34.32 Malignant neoplasm of lower lobe, left bronchus or lung (principal); I10 Essential (primary) hypertension; E78.00 Pure hypercholesterolemia, unspecified; K21.9 Gastro-esophageal reflux disease without esophagitis; F41.9 Anxiety disorder, unspecified; Z87.891 Personal history of nicotine dependence
CPT/HCPCS: 31629; 31624; 71045; 76000; 85999; 87015; 87070; 87102; 87106; 87116; 87205; 87206; 88160; 88305; 88313; 88342; 94640; A9270; J2370; J2704; J7040; J7120

== ENCOUNTER 2021-07-08 13:06 | Emergency (ER) | payer OTHER, SELFPAY ==
--- NOTE | ~2021-07-08 | XR_ITS ---
EXAMINATION: XR chest 2V DATE: 07/08/2021 14:26 INDICATION: Shortness of breath. Cough. TECHNIQUE: Frontal and lateral views of the chest were obtained. COMPARISON: Chest single view 06/20/2021, chest CT 06/16/2021, chest 2 views 06/16/2021 FINDINGS: There are airspace and interstitial opacities throughout left lung. No pleural effusion or pneumothorax. The heart size is normal. IMPRESSION: 1. Persistent diffuse left lung disease, consistent with lymphangitic spread of metastatic disease. Reviewed, dictated and finalized at location A.
[2021-07-08 13:44] VITALS: BP 90/57; PULSE 122; RESP 18; TEMP 36.4; O2SAT 99
--- NOTE | 2021-07-08 13:48 | ECG_ITS ---
Measurements Intervals [place] Rate: 118 P: 83 IN: 133 QRS: 90 QRSD: 70 T: 100 QT: 285 QTc: 400 Interpretive Statements SINUS TACHYCARDIA BORDERLINE T WAVE ABNORMALITY- HIGH LATERAL LEADS ABNORMAL ECG Electronically Signed On 07-08-2021 13:57:01 CDT by Daron Huertas D.O.
[2021-07-08 14:08] LABS: Basophils Absolute Auto 0.1 K/mm3 (0.0-0.1); Basophils Percent Auto 0.7 % (0.2-1.2); Eosinophils Absolute Auto 0.2 K/mm3 (0-0.3); Eosinophils Percent Auto 2.3 % (0-4.4); Immature Granulocyte Absolute 0.07 K/mm3 (0.00-0.031); Immature Granulocyte Percent A 0.7 % (0-0.5); Lymphocytes Absolute Auto 1.59 K/mm3 (0.9-3.2); Lymphocytes Percent Auto 16.7 % (18.3-44.2); Mean Corpuscular HGB Conc 33.3 g/dl (32-36); Mean Corpuscular Hemoglobin 29.3 pg (26-34); Mean Platelet Volume 9.7 fl (7.4-10.4); Monocytes Absolute Auto 1.5 K/mm3 (0.1-0.6); Monocytes Percent Auto 15.2 % (2.6-8.5); Neutrophils Absolute Auto 6.1 K/mm3 (1.3-6.7); Neutrophils Percent Auto 64.4 % (45.5-73.1); Platelet Count Result 319 k/mm3 (150-375); Red Blood Count 4.43 M/mm3 (4.2-5.4); Red Cell Distribution Width 11.5 % (11.5-14.5); White Blood Count 9.5 K/mm3 (4.5-10.0)
[2021-07-08 14:17] LABS: Anion Gap 7 mmol/L (8-16); Blood Urea Nitrogen 13 mg/dL (7-17); Calcium 10.1 mg/dL (8.4-10.2); Carbon Dioxide 24 mmol/L (22-30); Chloride 104 mmol/L (98-107); Estimated CRCL calculation 87 ml/min; Estimated Glomerular Filt Rate > 60; Glucose 105 mg/dL (65-110); Potassium 3.7 mmol/L (3.4-5.0); Sodium 135 mmol/L (137-145)
[2021-07-08 15:16] VITALS: BP 82/51; PULSE 106; RESP 16; TEMP 36.4; O2SAT 98
[2021-07-08 18:51] VITALS: BP 103/62; PULSE 106; RESP 29; O2SAT 98
[2021-07-08 19:30] VITALS: BP 96/70; PULSE 109; RESP 33; O2SAT 97
--- NOTE | 2021-07-08 20:09 | ED.SOB ---
HPI - SOB/Dyspnea General Chief Complaint: Shortness of Breath/Dyspnea Stated Complaint: SOB Time Seen by Provider: 07/08/21 18:40 Source: patient Mode of arrival: ambulatory Limitations: no limitations History of Present Illness HPI Narrative: 46-year-old female Here because of continued shortness of breath Her problems began several months ago with a cough and left-sided chest pain and shortness of breath Since then she has been treated with numerous courses of various different antibiotics without resolution of her symptoms She is also had a number of chest x-rays and a CT scan most recently about 2 weeks ago which show a progressive possibly lymphangitic pattern in the left lung At some point she cracked some ribs due to the severity of her coughing She had a bronc and washings done which were apparently ultimately inconclusive although they were originally thought possibly to be cancerous She also had a PET scan done elsewhere very recently which likewise was nondiagnostic She just finished a Z-Jt and is currently taking Levaquin Related Data Home Medications Medication Instructions Recorded Confirmed atorvastatin 10 mg PO DAILY 11/30/19 06/17/21 cetirizine 10 mg PO DAILY 11/30/19 06/17/21 lisinopril 20 mg PO DAILY 11/30/19 06/17/21 Allergies Allergy/AdvReac Type Severity Reaction Status Date / Time morphine Allergy Intermediate Hives Verified 07/08/21 18:37 Review of Systems Review of Systems: All systems reviewed & are unremarkable except as noted in HPI and below Constitutional: Constitutional: Reports no additional constitutional complaints, Denies chills, Reports fatigue, Denies fever(s), Denies headache(s) and Reports weakness Eyes: Eyes: Reports no additional eye complaints and Denies change in vision ENT: Denies headache(s) and Denies sore throat Cardiovascular: Cardiovascular: Reports chest pain and Denies dyspnea Respiratory: Respiratory: Reports cough and Reports dyspnea Gastrointestinal: Gastrointestinal: Denies abdominal pain, Denies diarrhea and Denies vomiting Genitourinary: Genitourinary: Denies urinary frequency and Denies dysuria Musculoskeletal: Musculoskeletal: Denies deformity, Denies arthralgias, Denies joint swelling and Denies numbness Integumentary/Breasts: Skin/Breast: Denies rash and Denies wounds Neurologic: Denies headache(s), Denies focal weakness and Denies numbness Psychiatric: Psychiatric: Reports no additional psychiatric complaints Endocrine: Endocrine: Reports no additional endocrine complaints Hematologic/Lymphatic: Hematologic/Lymphatic: Reports no additional hematologic/lymphatic complaints Allergic/Immunologic: Allergic/Immunologic: Reports no additional allergic/immunologic complaints [facility] Past Medical History Medical History (Updated 07/08/21 @ 20:17 by Ayush Fine MD) Anxiety Chest pain Endometriosis Female reproductive system disorder Fallopian tube surgery x2 with ablation GERD (gastroesophageal reflux disease) Hypercholesterolemia Hypertension Musculoskeletal disorder 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 Surgical History Surgical History H/O sinus surgery 2009 Social History Social History Social History: 5weeks quit Smoking packs per day: 0.5 Smoking cigarettes per day: 10.0 Years smoked: 25 Smoking pack-years: 12.50 Smoking status: Former smoker Tobacco type: cigarettes Smoking end date: 04/28/21 Alcohol intake: current Substance use: never Substance use type: does not use Gender identity (if verbalized by the patient): Female Spiritual care concerns: No Exam Const: General: cooperative, no acute distress and alert Orientation/consciousness: patient oriented x3 (alert) HENMT: Head: normal to inspection, normocephalic, atraumatic, no contusions and no hematomas Ears: medical transcription radiology
--- NOTE | 2021-07-08 20:10 | PC.NURSE ---
Asked EDP for something for pain and EDP states he will order something.
[2021-07-08 20:25] VITALS: BP 110/72; PULSE 110; RESP 26; O2SAT 97
[2021-07-08] MEDS: oxyCODONE/ACETAMINOPHEN (*CRX) 5-325 MG TABLET 1 TABLET PO (20:37)
[2021-07-08 21:10] VITALS: BP 108/62; PULSE 108; RESP 18; O2SAT 97
== END 2021-07-08 21:12 | disposition home or self-care (01) ==
PROVIDERS: Emergency Provider Emergency Medicine
DX: R91.8 Other nonspecific abnormal finding of lung field (principal); N80.9 Endometriosis, unspecified; K21.9 Gastro-esophageal reflux disease without esophagitis; E78.00 Pure hypercholesterolemia, unspecified; I10 Essential (primary) hypertension; Z87.891 Personal history of nicotine dependence; R00.0 Tachycardia, unspecified; R94.31 Abnormal electrocardiogram [ECG] [EKG]; J98.4 Other disorders of lung
CPT/HCPCS: 36415; 71046; 80048; 85025; 93005; 99284; A9270

== ENCOUNTER 2021-09-21 11:03 | Emergency (ER) | payer OTHER, SELFPAY ==
--- NOTE | ~2021-09-21 | XR_ITS ---
EXAMINATION: XR mandible min 4V INDICATION: Left jaw pain and swelling, history of metastatic lung cancer TECHNIQUE: Four views of the mandible are obtained on five radiographs. COMPARISON: None available FINDINGS: There is a subtle lucent area in the anterior/inferior body of the left mandible. Mandibula r alignment is normal. The temporomandibular joints appear normal. There is calcified atherosclerosis . IMPRESSION: 1. Possible lytic lesion involving the anterior/inferior body of the mandible. Findings could reflect metastatic disease or infection. Consider follow-up CT for further evaluation. These findings were d iscussed with Cassie Harrington CNP at 1158 hours on 09/21/2021. Reviewed, dictated and finalized at location A. IMPRESSION: 1. Possible lytic lesion involving the anterior/inferior body of the mandible. Findings could reflect metastatic disease or infection. Consider follow-up CT f or further evaluation. These findings were discussed with Cassie Harrington CNP at 1158 hours on 09/21/2021.
[2021-09-21 11:13] VITALS: BP 139/89; PULSE 94; RESP 18; TEMP 36.5; O2SAT 100
--- NOTE | 2021-09-21 11:33 | ED.GENADULT ---
HPI - General Adult General Chief complaint: Upper Respiratory Infection Stated complaint: Sinus/jaw pain/swelling Time Seen by Provider: 09/21/21 11:15 Source: patient Mode of arrival: ambulatory Limitations: no limitations History of Present Illness HPI narrative: Cherie Vela is a 46 yo female with a PMH of stage IV non-small cell lung cancer, high cholesterol, who comes for left jaw pain and swelling she is took steroids this morning and the pain is 6/10 but last night was greater than 10 out of 10 she is periodically on steroids as part of her chemo regimen for her lung cancer and she is on immunotherapy Related Data Home Medications Medication Instructions Recorded Confirmed atorvastatin 10 mg PO DAILY 11/30/19 09/21/21 cetirizine 10 mg PO DAILY 11/30/19 09/21/21 alprazolam 0.25 mg PO PRN PRN 09/21/21 09/21/21 apixaban [Eliquis] 5 mg PO DAILY 09/21/21 09/21/21 folic acid 1 mg PO DAILY 09/21/21 09/21/21 metoprolol tartrate 25 mg PO DAILY 09/21/21 09/21/21 Allergies Allergy/AdvReac Type Severity Reaction Status Date / Time morphine Allergy Intermediate Hives Verified 09/21/21 11:34 Review of Systems Review of Systems: CONSTITUTIONAL: Denies fever, chills, sweats. EYES: Denies visual changes, redness, discharge. ENT: Denies rhinorrhea, congestion, sore throat, otalgia. Left-sided jaw pain and swelling CARDIOVASCULAR: Denies chest pain, palpitations, edema. RESPIRATORY: Denies dyspnea, wheezing, cough GASTROINTESTINAL: Denies abdominal pain, nausea, vomiting, diarrhea. GENITOURINARY: Denies dysuria, hematuria, abnormal discharge SKIN: Denies rash or itching. NEUROLOGIC: Denies numbness, or focal weakness. PSYCHIATRIC: Denies anxiety or depression. 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 There is no relevant family history pertinent to the presenting complaint. Exam Narrative: GENERAL: This is a well-nourished, well-developed thin patient, in moderate distress. HEAD: normocephalic, atraumatic. EYES: Sclera clear/white. Vision is grossly intact. EARS: External ears normal,. Hearing grossly intact. NOSE: External nose normal without nasal discharge, nares without redness, no rhinorrhea. Mouth: Left-sided jaw pain and swelling is not tender to touch THROAT: Mucous membranes moist, posterior pharynx pink NECK: Neck supple, non-tender CARDIOVASCULAR: Regular rate and rhythm without murmurs, gallops, or rubs. RESPIRATORY: Clear to auscultation. Breath sounds equal bilaterally. No wheezes, rales, or rhonchi. GASTROINTESTINAL: Abdomen soft, SKIN: warm, intact with no suspicious lesions or rash, good texture and turgor. NEURO: awake, alert, and oriented to person, place and time. There were no obvious focal neurologic abnormalities. Steady gait EXTREMITIES: Normal range of motion. BACK: Nontender without deformity Course Course Emergency Course: Patient here for complaints of
== END 2021-09-21 12:20 | disposition home or self-care (01) ==
PROVIDERS: Emergency Provider Nurse Practitioner
DX: R68.84 Jaw pain (principal); C34.90 Malignant neoplasm of unspecified part of unspecified bronchus or lung; Z87.891 Personal history of nicotine dependence; N80.9 Endometriosis, unspecified; K21.9 Gastro-esophageal reflux disease without esophagitis; E78.00 Pure hypercholesterolemia, unspecified; I10 Essential (primary) hypertension; F41.9 Anxiety disorder, unspecified
CPT/HCPCS: 70110; 99213; G0463

== ENCOUNTER 2022-04-14 17:50 | Emergency (ER) | payer OTHER, SELFPAY ==
[2022-04-14 18:06] VITALS: BP 130/80; PULSE 90; RESP 16; TEMP 36.1; O2SAT 100
--- NOTE | 2022-04-14 18:22 | ED.SKABFB ---
HPI - Skin/Abscess/Foreign Bdy General Chief complaint: Skin/Abscess/Foreign Body Stated complaint: Skin Irritation Time Seen by Provider: 04/14/22 18:12 Source: patient Mode of arrival: ambulatory Limitations: no limitations History of Present Illness HPI narrative: 46-year-old female presented for complaint of rash under her right breast and mid right back, onset yesterday. She endorses burning sensation with mild itching. Pain is mild. Denies drainage. She has not applied anything to the site, denies any other locations of lesions. Denies any changes to lotion, soap, detergent etc. She is currently under chemotherapy treatment for NSCLC. Endorses history of a stroke in November 2021. MD complaint: rash Related Data Home Medications Medication Instructions Recorded Confirmed atorvastatin 10 mg PO DAILY 11/30/19 09/21/21 cetirizine 10 mg PO DAILY 11/30/19 09/21/21 alprazolam 0.25 mg PO PRN PRN 09/21/21 09/21/21 apixaban [Eliquis] 5 mg PO DAILY 09/21/21 09/21/21 folic acid 1 mg PO DAILY 09/21/21 09/21/21 metoprolol tartrate 25 mg PO DAILY 09/21/21 09/21/21 Allergies Allergy/AdvReac Type Severity Reaction Status Date / Time morphine Allergy Intermediate Hives Verified 04/14/22 18:12 Review of Systems Review of Systems: CONSTITUTIONAL: Denies body aches, fever, chills, or sweats. EYES: Denies visual changes, redness, or discharge. ENT: Denies rhinorrhea, congestion, sore throat, or otalgia. CARDIOVASCULAR: Denies chest pain, palpitations, or edema. RESPIRATORY: Denies cough or dyspnea. GASTROINTESTINAL: Denies abdominal pain, nausea, vomiting, or diarrhea. GENITOURINARY: Denies dysuria or hematuria. SKIN: Endorses rash MUSCULOSKELETAL: Denies back pain, joint pain, or myalgia. NEUROLOGIC: Denies headache, numbness, tingling, or weakness. PSYCH: Denies depression or anxiety. 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 Non-small cell lung cancer (NSCLC) Surgical History Surgical History H/O sinus surgery 2009 Social History Social History Social History: 5weeks quit Smoking packs per day: 0.5 Smoking cigarettes per day: 10.0 Years smoked: 25 Smoking pack-years: 12.50 Smoking status: Former smoker Tobacco type: cigarettes Smoking end date: 04/28/21 Alcohol intake: current Substance use: never Substance use type: does not use Gender identity (if verbalized by the patient): Female Spiritual care concerns: No Comments At time of signature, I have reviewed and agree with nursing past medical, surgical, social and family history unless otherwise noted. Please see nursing chart for further information. There is no relevant family history pertinent to the presenting complaint Exam Narrative: GENERAL: Well-appearing HEAD: Normocephalic, atraumatic. EYES: conjunctivae clear, and EOMI. ENT: Mucous membranes moist. Oropharynx without edema, erythema or lesions. NECK: Supple. No lymphadenopathy CHEST: Clear to auscultation. No respiratory distress. HEART: Regular rate and rhythm. SKIN: Warm, dry. Clusters of erythematous vesicles under right breast and right mid back c/w zoster, dermatome T8, no active drainage, no fluctuance purulence or induration. NEURO: Alert and oriented x3. PSYCH: Normal mood and affect Course Course Emergency Course: Patient is aware of diagnosis, understands and agrees to treatment plan. Anticipatory guidance given. Patient agrees to follow-up as directed and is aware of reasons to seek care at the emergency department. Portions of this recor
== END 2022-04-14 18:30 | disposition home or self-care (01) ==
PROVIDERS: Emergency Provider Nurse Practitioner Family
DX: B02.9 Zoster without complications (principal); Z87.891 Personal history of nicotine dependence; N80.9 Endometriosis, unspecified; K21.9 Gastro-esophageal reflux disease without esophagitis; E78.00 Pure hypercholesterolemia, unspecified; I10 Essential (primary) hypertension; F41.9 Anxiety disorder, unspecified; Z86.73 Personal history of transient ischemic attack (TIA), and cerebral infarction without residual deficits; C34.90 Malignant neoplasm of unspecified part of unspecified bronchus or lung; Z79.899 Other long term (current) drug therapy
CPT/HCPCS: 99213; G0463

== ENCOUNTER 2022-07-09 18:18 | Emergency (ER) | payer OTHER, SELFPAY ==
--- NOTE | 2022-07-09 18:20 | ED.LOWEXIN ---
HPI - Extremity Injury (Lower) General Stated Complaint: knee pain Time Seen by Provider: 07/09/22 18:20 Source: patient Mode of arrival: ambulatory Limitations: no limitations History of Present Illness HPI Narrative: Ms. Vela is a 47-year-old female patient presenting to the clinic today with complaints of knee pain x 2 weeks. She reports pain to the anterior knee with a knot to this area, pain has gradually decreased over the last week but still has the knot to the anterior knee. Reports that she has been able to bend her knee better this week. Has x-ray completed and it was negative. States she injured her knee when she was running up the stairs and missed a stair causing her to hit the anterior knee on the stair above it. Related Data Home Medications Medication Instructions Recorded Confirmed atorvastatin 10 mg tablet 10 mg PO DAILY 11/30/19 04/14/22 cetirizine 10 mg tablet 10 mg PO DAILY 11/30/19 04/14/22 alprazolam 0.25 mg tablet 0.25 mg PO PRN PRN Anxiety 09/21/21 04/14/22 folic acid 1 mg tablet 1 mg PO DAILY 09/21/21 04/14/22 metoprolol tartrate 25 mg tablet 25 mg PO DAILY 09/21/21 04/14/22 fluconazole 200 mg tablet 200 mg PO DAILY 04/14/22 04/14/22 fondaparinux 7.5 mg/0.6 mL 7.5 mg subcut WEEKLY 04/14/22 04/14/22 subcutaneous solution syringe Allergies Allergy/AdvReac Type Severity Reaction Status Date / Time morphine Allergy Intermediate Hives Verified 07/09/22 18:35 Review of Systems Review of Systems: Pertinent positives per HPI. Patient denies any fever, chills, rash, headache, visual changes, dizziness, cough, runny nose, sore throat, shortness of breath, chest pain, palpitations, nausea, vomiting, diarrhea, constipation, abdominal pain, or any urinary issues. 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 Non-small cell lung cancer (NSCLC) Surgical History Surgical History H/O sinus surgery 2009 Social History Social History Social History: 5weeks quit Smoking packs per day: 0.5 Smoking cigarettes per day: 10.0 Years smoked: 25 Smoking pack-years: 12.50 Smoking status: Former smoker Tobacco type: cigarettes Smoking end date: 04/28/21 Alcohol intake: current Substance use: never Substance use type: does not use Gender identity (if verbalized by the patient): Female Spiritual care concerns: No Comments At the time of my signature, I reviewed and agree with the nursing past medical, surgical, social, and family history. There is no relevant family history pertinent to the patient complaint. Exam Narrative: General: Well-developed, well nourished, in no apparent distress Head: Normocephalic, atraumatic. Cardio: Regular rate and rhythm, s1 and s2 normal, no murmur appreciated. Resp: Clear to auscultation bilaterally, no rhonchi, rales, wheezing or rubs. Musculoskeletal: No deformity, mild palpation to the affected area with golf ball sized firm hematoma to the anterior superior knee, grossly normal range of motion, muscle strength strong and equal, peripheral pulse strong, no edema, no cyanosis, normal gait and station Course Course Emergency Course: Portions of this record may have been created with voice recognition software. Level of Care: Express Care Visit Vital Signs Vital signs: Vital signs reviewed MDM - Extremity Injury (Lower) MDM Narrative Medical decision making narrative: At the time of visit patient is resting comfortably on the exam table. Discharge Plan Discharge Clinical Impression: Hematoma of left knee region
[2022-07-09 18:29] VITALS: BP 154/90; PULSE 117; RESP 18; TEMP 36.6; O2SAT 99
== END 2022-07-09 18:45 | disposition home or self-care (01) ==
PROVIDERS: Emergency Provider Nurse Practitioner Family
DX: S80.02XA Contusion of left knee, initial encounter (principal); W10.9XXA Fall (on) (from) unspecified stairs and steps, initial encounter; N80.9 Endometriosis, unspecified; K21.9 Gastro-esophageal reflux disease without esophagitis; E78.00 Pure hypercholesterolemia, unspecified; I10 Essential (primary) hypertension; Z85.118 Personal history of other malignant neoplasm of bronchus and lung; Z87.891 Personal history of nicotine dependence; F41.9 Anxiety disorder, unspecified
CPT/HCPCS: 99212; G0463

== ENCOUNTER 2022-09-11 18:12 | Emergency (ER) | payer OTHER, SELFPAY | END 2022-09-11 18:23 | disposition left against medical advice (07) | DX: Z53.21 Procedure and treatment not carried out due to patient leaving prior to being seen by health care provider (principal) | CPT/HCPCS: 99199 ==